=== PATIENT | female | born 1960 | race Caucasian/White ===

== ENCOUNTER 2019-06-10 07:55 | Inpatient (IN) | payer MEDICARE, MEDICAID ==
[2019-06-10] VITALS (13 sets, daily range): BP systolic 101–134; BP diastolic 51–75
[~2019-06-10] VITALS: Ht 162.6 cm; Wt 79.8 kg
[2019-06-10] MEDS ORDERED: TRANEXAMIC ACID 3,000 MG in SODIUM CHLORIDE IRRIG SOLUTION 70 ML IR ONE (08:30)
--- NOTE | 2019-06-10 08:30 | NUR ---
MS RN NOTES PATIENT ARRIVE AT UNIT AMBULATORY AT 0820. A/O X 4, NO ACUTE DISTRESS. NO C/O PAIN. PATIENT CALM AND RELAXED. FOR DAY SURGERY WITH DR GUZMAN FOR RIGHT ASHOK. PATIENT VERBALIZED SHE HAS BEEN NPO SINCE 06/09/19 AT 2000. LAST BM 06/09/19. IV LINE ESTABLISHED AT LEFT HAND g20, SECURED WITH TEGADERM. OR STAFF AWARE OF PATIENT ARRIVAL. PATIENT ORIENTED TO UNIT, STAFF, PLAN OF CARE AND VERBALIZED UNDERSTANDING. MRSA SWAB DONE. PATIENT INVENTORY DONE. WILL CONTINUE TO MONITOR. BED LOCKED AND IN LOW POSITION. BILATERAL UPPER SIDE RAILS UP AND LOCKED. CALL LIGHT WITHIN EASY REACH
--- NOTE | 2019-06-10 10:12 | NUR ---
WOUND CARE CONSULT: PT PRESENTS WITH RT SHOULDER SCAR. PT DENIED NEED FOR FURTHER SKIN ASSESSMENT PT IS CONTINENT AND AMBULATORY WITH CURRENT JOSE A SCORE OF 21. WILL SEE PRN.
--- NOTE | 2019-06-10 10:35 | NUR ---
MS RN NOTES PATIENT LEFT UNIT VIA HOSPITAL BED FOR SURGERY. LEFT IN STABLE CONDITION. A/O X4. BELONGINGS LEFT INSIDE ROOM.
[2019-06-10] MEDS ORDERED: KETOROLAC TROMETHAMINE INJ 30 MG/ML VIAL ONE (12:31)
--- NOTE | 2019-06-10 13:15 | NUR ---
MS RN NOTES PATIENT ARRIVED IN UNIT WITH 2 MICROBIOLOGY ANALYST VIA HOSPITAL BED FROM SURGERY, REPORT RECEIVED FROM MELANI BOLES. A/O X 4. ON RA. WITH IVF ON LEFT HAND INFUSING WELL. PROVIDED WITH INCENTIVE SPIROMETRY, DRESSING ON RIGHT HIP INTACT. NO ACUTE DISTRESS NOTED AT THIS TIME. PATIENT DENIES PAIN OR DISCOMFORT AT THIS TIME. PATIENT WITH NEW ORDERS FROM DR. GUZMAN, NOTED AND CARRIED OUT. PATIENT MADE AWARE AND VERBALIZED UNDERSTANDING. WILL CONTINUE TO MONITOR.
--- NOTE | 2019-06-10 13:20 | NUR ---
MS RN NOTES PATIENT SEEN AND EXAMINED BY DR. HUNTER WITH ORDERS NOTED AND CARRIED OUT.
[2019-06-10] MEDS ORDERED: MAG HYDROX/AL HYDROX/SIMETH 30 ML UDC PO PRN (13:30)
[2019-06-10] MEDS ORDERED: CLONIDINE HCL 0.1 MG TABLET PO PRN (13:30)
[2019-06-10] MEDS ORDERED: MENTHOL/CETYLPYRD (CEPACOL) 1 LOZ LOZENGE PO PRN (13:30)
[2019-06-10] MEDS ORDERED: ONDANSETRON HCL/PF 4 MG/2 ML VIAL IV PRN (13:30)
[2019-06-10] MEDS ORDERED: DOCUSATE SODIUM 250 MG CAPSULE PO PRN (14:00)
[2019-06-10] MEDS ORDERED: ACETAMINOPHEN 325 MG TABLET PO PRN (14:00)
[2019-06-10] MEDS ORDERED: TRAMADOL HCL 50 MG TABLET PO PRN (14:00)
[2019-06-10] MEDS ORDERED: oxyCODONE IR immediate release 5 MG PO ONE (14:12)
[2019-06-10] MEDS: NICOTINE PATCH (21MG) 21 MG PATCH.TD24 TD SCH (14:29)
--- NOTE | 2019-06-10 14:49 | NUR ---
MS RN NOTES PLACED CALL TO BOBO LARA. VERIFIED WEIGHT BEARING STATUS. PER AKOSUA ERYES, PATIENT OK TO BE WBAT. NOTED AND CARRIED OUT. PATIENT MADE AWARE AND VERBALIZED UNDERSTANDING. PHYSICAL THERAPY MADE AWARE. WILL CONTINUE TO MONITOR
[2019-06-10] MEDS ORDERED: BUSP30TA2 PO (15:54)
[2019-06-10] MEDS ORDERED: DIPH25TA62 PO (15:54)
[2019-06-10] MEDS ORDERED: SUMA100T16 PO (15:54)
[2019-06-10] MEDS ORDERED: OMEP20TA5 PO (15:54)
[2019-06-10] MEDS ORDERED: ACET-73 PO (15:54)
[2019-06-10] MEDS ORDERED: ALBU2.5V38 IH (15:54)
[2019-06-10] MEDS ORDERED: IPRA4AER IH (15:54)
[2019-06-10] MEDS ORDERED: METO-357 PO (15:54)
[2019-06-10] MEDS ORDERED: FLUT1BLS12 IH (15:54)
[2019-06-10] MEDS ORDERED: RIVA10TA PO (15:54)
[2019-06-10] MEDS ORDERED: MONT10TA22 PO (15:54)
[2019-06-10] MEDS ORDERED: ATOR80TA PO (15:54)
[2019-06-10] MEDS ORDERED: TOPI50TA PO (15:54)
[2019-06-10] MEDS ORDERED: DILT180C66 PO (15:54)
[2019-06-10] MEDS ORDERED: GABA-534 PO (15:54)
--- NOTE | 2019-06-10 16:32 | NUR ---
MS RN NOTES HOME MEDS ENTERED BY MED RECON NURSE. JUVENAL GARCIA DNP MADE AWARE. WILL CONTINUE TO MONITOR
[2019-06-10] MEDS: IV LR 1000 ML 1,000 ML IV PRN (17:39)
[2019-06-10] MEDS: DOCUSATE SODIUM 100 MG CAPSULE PO SCH (17:41)
--- NOTE | 2019-06-10 19:00 | NUR ---
MS RN NOTES Received patient A/O x4, awake on bed. On RA, no SOB/respiratory distress noted. With clean, dry and intact dressing on R hip, S/P ASHOK day 0. With abductor pillow between legs, with BLE in full extension. With complaints of pain 8/10, aggravated with movement. Kept on bed clean, dry and comfortable. Offered pain meds but patient wanted to take it later. Discussed with patient the POC for the night. On fall precautions, call light within easy reach. Will continue to monitor accordingly.
[2019-06-10] MEDS ORDERED: ALBUTEROL FS 2.5 MG/3 ML VIAL.NEB NEB PRN (19:30)
[2019-06-10] MEDS ORDERED: SUMATRIPTAN SUCCINATE 100 MG TABLET PO PRN (19:30)
--- NOTE | 2019-06-10 19:41 | NUR ---
MS RN CLOSING NOTES PATIENT IN ROOM RESTING COMFORTABLY WITH MODERATE HIGH BACKREST. A/O X 4. ON RA, TOLERATING WELL. ON IVF ON LEFT HAND #20 WITH LR @100ML/HR. INFUSING WELL. NO INFILTRATION NOTED. S/P RIGHT ASHOK. DRESSING INTACT, NO ACTIVE BLEEDING NOTE. BILATERAL SCD IN PLACE. PATIENT KEPT CLEAN, DRY AND COMFORTABLE. BED IN LOWEST POSITION, CALL LIGHT WITHIN REACH. BED ALARM ON. ENDORSED TO TURRET LATHE MACHINIST NURSE FOR CELIA.
[2019-06-10] MEDS: oxyCODONE IR immediate release 5 MG PO PRN ×2 (19:52→22:13)
[2019-06-10] MEDS: IPRATROPIUM NEB FS 0.5 MG/2.5 ML AMPUL.NEB NEB SCH ×2 (20:00→23:07)
[2019-06-10] MEDS ORDERED: diphenhydrAMINE HCL 25 MG CAPSULE PO PRN (20:00)
[2019-06-10] MEDS: FAMOTIDINE (20 MG) 20 MG TABLET PO SCH (20:26)
[2019-06-10] MEDS: ANCEF 1 GM/50 ML D5W IV SCH ×2 (20:26)
[2019-06-10 20:46] LABS: CALCIUM, SERUM 8.5 mg/dL (8.5-10.1); CREATININE 1.4 mg/dL (0.6-1.3); POTASSIUM 3.9 mmol/L (3.5-5.1)
[2019-06-10] MEDS: METOPROLOL SUCCINATE 50 MG TAB.SR.24H PO SCH (20:57)
--- NOTE | 2019-06-10 20:58 | NUR ---
MS RN NOTES BP 104/75mmHg. Help Metoprolol at this time. Taught patient the s/sx of hypertension, patient verbalized understanding. Will continue to monitor the patient accordingly.
[2019-06-10] MEDS ORDERED: ZOLPIDEM TARTRATE 5 MG TABLET PO PRN (22:00)
[2019-06-10] MEDS ORDERED: SENNOSIDES 8.6 MG TABLET PO PRN (22:00)
[2019-06-11] MEDS: oxyCODONE IR immediate release 5 MG PO PRN ×5 (01:45→22:00)
[2019-06-11] MEDS: IV LR 1000 ML 1,000 ML IV PRN (03:59)
[2019-06-11] MEDS: ANCEF 1 GM/50 ML D5W IV SCH ×2 (04:00)
--- NOTE | 2019-06-11 04:45 | NUR ---
MS RN NOTES Received a call from Dr. Stevens. Status update provided. Received orders, noted and carried out. Decreased IVF LR to 50ml/hr as ordered. Will continue to monitor accordingly.
[2019-06-11] MEDS: diphenhydrAMINE HCL 25 MG CAPSULE PO PRN ×2 (05:32→23:37)
[2019-06-11 06:24] LABS: BASOPHILS % (AUTO) 0.1 % (0.0-2.0); HEMATOCRIT 42 % (33-45); HEMOGLOBIN 13.4 g/dL (11.5-14.8); LYMPHOCYTES # (AUTO) 2.5 /CMM (0.8-4.8); LYMPHOCYTES % (AUTO) 13.8 % (20.0-44.0); MEAN CORPUSCULAR HGB CONC 32 g/dl (31.0-36.0); MEAN CORPUSCULAR VOLUME 90 fL (82-100); MONOCYTES # (AUTO) 1.1 /CMM (0.1-1.30); NEUTROPHILS # (AUTO) 14.6 /CMM (1.8-8.9); NEUTROPHILS % (AUTO) 80.1 % (43.0-81.0); PLATELET COUNT (AUTO) 344 /CMM (150-450); RED BLOOD CELL COUNT(AUTO) 4.64 MIL/uL (4.0-5.2); WHITE BLOOD COUNT (AUTO) 18.3 K/uL (4.3-11.0)
[2019-06-11 06:54] LABS: ALBUMIN 3.7 g/dL (3.4-5.0); BILIRUBIN,TOTAL 0.3 mg/dL (0.2-1.0); CREATININE 1.3 mg/dL (0.6-1.3); MAGNESIUM 2.1 mg/dL (1.8-2.4); PHOSPHORUS 4.6 mg/dL (2.5-4.9); POTASSIUM 4.1 mmol/L (3.5-5.1); TOTAL PROTEIN, SERUM 7.3 g/dL (6.4-8.2)
--- NOTE | 2019-06-11 07:00 | NUR ---
MS RN CLOSING NOTES Patient awake on bed on Hassan's position. Abduction pillow kept on place while patient is on bed. Patient noted able to use bedside commode with minimal assistance. Medicated for pain, noted effective. R hip dressing intact, clean and dry. All nursing needs attended. On fall precautions, call light within easy reach. Endorsed to the next shift.
--- NOTE | 2019-06-11 07:00 | NUR ---
RN OPENING NOTES RECEIVED PATIENT IN BED RESTING. A/OX4, ABLE TO MAKE NEEDS KNOWN. NOT IN ANY FORM OF DISTRESS, NO SOB. DENIED PAIN OR DISCOMFORT AT THIS TIME. IV ACCESS INTACT AND PATENT. ABDUCTOR PILLOW IN PLACE. ON SCD PUMPS. COMMODE AT BEDSIDE. KEPT PATIENT SAFE AND COMFORTABLE. BED IN LOW/LOCKED POSITION, SIDERAILS UPX2, CALL LIGHT IN REACH. WILL CONTINUE TO MONIOTR ACCORDINGLY.
[2019-06-11 07:14] LABS: THYROID STIMULATING HORMONE 1.018 uIU/mL (0.358-3.74)
[2019-06-11] MEDS: IPRATROPIUM NEB FS 0.5 MG/2.5 ML AMPUL.NEB NEB SCH ×3 (07:35→20:33)
[2019-06-11 08:00] VITALS: BP 124/76
[2019-06-11] MEDS: FLUTICASONE/VILANTEROL 1 EACH BLST.W.DEV IH SCH (08:59)
[2019-06-11] MEDS: TOPIRAMATE 25 MG TABLET PO SCH ×2 (08:59→17:17)
[2019-06-11] MEDS: FAMOTIDINE (20 MG) 20 MG TABLET PO SCH ×2 (09:00→20:57)
[2019-06-11] MEDS: DILTIAZEM HCL CD 180 MG PO SCH (09:00)
[2019-06-11] MEDS ORDERED: GABAPENTIN 300 MG CAPSULE PO SCH (09:00)
[2019-06-11] MEDS: busPIRone 5 MG TABLET PO SCH ×2 (09:01→17:18)
[2019-06-11] MEDS: GABAPENTIN 300 MG CAPSULE PO SCH ×3 (09:02→17:16)
[2019-06-11] MEDS: MONTELUKAST SODIUM (10MG) 10 MG TABLET PO SCH (09:02)
[2019-06-11] MEDS: DOCUSATE SODIUM 100 MG CAPSULE PO SCH ×2 (09:02→17:16)
[2019-06-11] MEDS: NICOTINE PATCH (21MG) 21 MG PATCH.TD24 TD SCH (09:03)
[2019-06-11] MEDS: ATORVASTATIN 40 MG TABLET PO SCH (09:03)
[2019-06-11] MEDS ORDERED: ALBUTEROL INH PRN (11:00)
[2019-06-11] MEDS ORDERED: IPRATROPIUM INH PRN (11:00)
--- NOTE | 2019-06-11 11:41 | NUR ---
RN NOTES HOME MEDS INHALER AT BEDSIDE.
[2019-06-11 15:30] VITALS: BP 100/65
--- NOTE | 2019-06-11 16:00 | NUR ---
RN NOTES PATIENT REPORTED THAT SHE FELT A "POP" ON HER RIGHT HIP AND FELT WEIRD. STAT XRAY ORDERED. Addendum: 06/11/19 at 1805 by WALKER JACKSON EVELYN REID
[2019-06-11] MEDS: RIVAROXABAN 10 MG TABLET PO SCH (17:22)
--- NOTE | 2019-06-11 18:00 | NUR ---
RN NOTES IV ACCESS INFILTRATED. STOP INFUSION, REMOVED IV ACCESS, NO BLEEDING. ELEVATED EXTREMITY. WILL MONIOTR ACCORDINGLY
--- NOTE | 2019-06-11 18:10 | NUR ---
RN NOTES REFUSED COLD COMPRESS TO THE INFILTRATED SITE. EXPLAINED RISK AND BENEFIT BUT STILL REFUSED. PER PATIENT, "NAH, ITS OK, IT'S NOT PAINFUL, IT'S GETTING BETTER AND SWELLING IS ALMOST GONE.". TOLD PATIENT TO JUST CONTINUE TO ELEVATE THE LEFT ARM. WILL MONITOR ACCORDINGLY
--- NOTE | 2019-06-11 18:43 | NUR ---
RN CLOSING NOTES PATIENT IN STABLE CONDITION. ALL NEEDS ATTENDED AND PROVIDED. ALL DUE MEDICATIONS GIVEN ORDERED. ASSISTED WITH ADLS. KEPT PATIENT SAFE AND COMFORTABLE. ABDUCTOR PILLOW IN PLACE. SCD PUMPS ON. COMMODE AT BEDSIDE. BED IN LOW/LOCKED POSITION, SIDERAILS UPX2, CALL LIGHT IN REACH. WILL ENDORSED TO NIGHT RN FOR CELIA.
--- NOTE | 2019-06-11 19:00 | NUR ---
RN medsurg notes Pt is alert and oriented x4. Pt is laying in bed comfortably watching TV. Respiration is normal. NO SOB. NO nausea or vomiting. No S/S of distress noted. Pt doesn't have IV sites at this time because of infiltration. Will insert IV later. Pt verbalize understanding. Safety precautions is maintained. Instructed to call for assistance. Bed at low position, brakes on, side rails upX2 and call light is within reach. Will continue to monitor and assist all needs.
[2019-06-11 20:00] VITALS: BP 123/57
--- NOTE | 2019-06-11 20:45 | NUR ---
Patient is POD#1 s/p Right total hip arthroplasty.She lives at home with her daughter Katie in a two story home with her bedroom on the first floor. Prior to admission, she was ambulating with a four wheel walker and independent with adl's. She own a cane and a four wheel walker. Patient is requesting a commode or shower chair when discharge. Offered ARU for rehab but patient declined. She prefer to go home and requesting outpatient therapy in [place]. Daughter Katie will provide ride when discharge. Addendum: 06/11/19 at 2044 by SRINI TOBIAS RN Amended: Links added.
[2019-06-11] MEDS: METOPROLOL SUCCINATE 50 MG TAB.SR.24H PO SCH (22:00)
--- NOTE | 2019-06-11 22:00 | NUR ---
RN medsurg notes Administered Oxy Ir 10 mg as ordered for Pain in Left and right hip 7/10 on pain scale per Pt requested. Instructed to call. Will continue to monitor.
[2019-06-11 22:20] VITALS: BP 114/63
--- NOTE | 2019-06-11 22:22 | NUR ---
RN medsurg notes Held Metoprolol 50 mg/PO/HS. Pt's BP 114/63, Pulse 81, Temp 97.8, Respiration 18, O2 sat 96%. Educated Pt's about S/S of hypertension. Pt's verbalized understanding. Will continue to monitor.
--- NOTE | 2019-06-11 22:30 | NUR ---
RN medsurg notes Inserted new IV sites at Left AC #22 gauge. IV sites is patent, intact and flush without resistance. Pt tolerated activity well.
--- NOTE | 2019-06-11 23:00 | NUR ---
RAMANA corey notes Pt refused Incentive Spirometer. Informed and educated Pt about Incentive spirometer activity. Risks and benefits made aware. Pt verbalized understanding and still refusing. Will continue to monitor.
--- NOTE | 2019-06-11 23:10 | NUR ---
RN madhav notes Dr. Stevens at the bedside talking about POC. Dr. Stevens asked about Pt's concerned. Pt asked medication that will help Pt to sleep. Pt states " Ambien doesn't work for me." Pt's also complaining of itchyness. suggested to give Benadryl to Pt. Ordered carried out.
--- NOTE | 2019-06-11 23:37 | NUR ---
RN medsurg notes Administered Benadryl 25 mg/PO as ordered for itchyness per Pt's requested. Instructed to call. Will continue to monitor.
[2019-06-12] VITALS (7 sets, daily range): BP systolic 104–131; BP diastolic 55–68
--- NOTE | 2019-06-12 | NUR ---
RN medsurg notes Pt is sleeping in bed comfortably. Awaken easily. No SOB. NO S/S of distress noted. Call light is within reach. Will continue to monitor.
[2019-06-12] MEDS: IPRATROPIUM NEB FS 0.5 MG/2.5 ML AMPUL.NEB NEB SCH ×4 (01:30→19:30)
--- NOTE | 2019-06-12 01:55 | NUR ---
RAMANA corey notes Pt refused breathing treatment from RT. Pt states "I don't need breathing treatment". Risk and benefits made aware. Pt verbalized understanding and still refusing. Will continue to monitor.
[2019-06-12] MEDS: oxyCODONE IR immediate release 5 MG PO PRN ×4 (02:09→17:23)
--- NOTE | 2019-06-12 02:16 | NUR ---
RN medsurrivas notes Administered Oxy Ir 15 mg as ordered for Pain in Right hip 8/10 on pain scale per Pt requested. Instructed to call. Will continue to monitor.
--- NOTE | 2019-06-12 02:46 | NUR ---
RN medsurg notes Pt is sleeping in bed comfortably. Awaken easily. No SOB. No S/S of distress noted. Pt's pain level is 3/10 on pain scale. BP 104/62, PULSE 70, RESP 18, 02 SAT IS 95%, TEMP 97.8. Instructed to call. Call light is within reach. Will continue to monitor.
--- NOTE | 2019-06-12 06:28 | NUR ---
RN medsurg notes Administered Senokot Tab 8.6mg (2 tabs)/PO as ordered for constipation per Pt requested. Will continue to monitor.
--- NOTE | 2019-06-12 06:56 | NUR ---
RN medsurg closing notes Pt is alert and oriented X4. Pt is resting in bed comfortably. No SOB. No nausea or vomiting. No S/S of distress noted. IV sites is intact, patent and infusing well LR 50 ml/hr. Routine meds including PRN meds were given as ordered. All needs met. Safety precautions is maintained. Will endorse to morning nurse for CELIA.
--- NOTE | 2019-06-12 06:57 | NUR ---
RN closing notes continue R hip dressing is intact, clean and dry. Abduction pillow kept in place while Pt in bed. Instructed Pt to call for assistance. Will endorse to morning nurse for CELIA.
[2019-06-12 07:07] LABS: CALCIUM, SERUM 8.7 mg/dL (8.5-10.1); CREATININE 0.9 mg/dL (0.6-1.3); POTASSIUM 4.1 mmol/L (3.5-5.1)
[2019-06-12 07:08] LABS: BASOPHILS % (AUTO) 0.2 % (0.0-2.0); EOSINOPHILS % (AUTO) 0.4 % (0.0-6.0); HEMATOCRIT 39 % (33-45); HEMOGLOBIN 12.5 g/dL (11.5-14.8); LYMPHOCYTES % (AUTO) 26.4 % (20.0-44.0); MEAN CORPUSCULAR HGB CONC 33 g/dl (31.0-36.0); MEAN CORPUSCULAR VOLUME 88 fL (82-100); MONOCYTES # (AUTO) 1.1 /CMM (0.1-1.30); MONOCYTES % (AUTO) 7.6 % (2.0-12.0); NEUTROPHILS # (AUTO) 9.8 /CMM (1.8-8.9); NEUTROPHILS % (AUTO) 65.4 % (43.0-81.0); PLATELET COUNT (AUTO) 323 /CMM (150-450); RED BLOOD CELL COUNT(AUTO) 4.36 MIL/uL (4.0-5.2); WHITE BLOOD COUNT (AUTO) 15.1 K/uL (4.3-11.0)
--- NOTE | 2019-06-12 08:00 | NUR ---
Pt in bed awake, alert, oriented x4, verbally responsive, s/o total hip arthroplasty surgery, comfortable no distress.
[2019-06-12] MEDS: TOPIRAMATE 25 MG TABLET PO SCH ×2 (08:41→16:35)
[2019-06-12] MEDS: ATORVASTATIN 40 MG TABLET PO SCH (08:41)
[2019-06-12] MEDS: NICOTINE PATCH (21MG) 21 MG PATCH.TD24 TD SCH (08:43)
[2019-06-12] MEDS: MONTELUKAST SODIUM (10MG) 10 MG TABLET PO SCH (08:43)
[2019-06-12] MEDS: GABAPENTIN 300 MG CAPSULE PO SCH ×3 (08:43→16:34)
[2019-06-12] MEDS: FAMOTIDINE (20 MG) 20 MG TABLET PO SCH ×2 (08:43→21:08)
[2019-06-12] MEDS: DOCUSATE SODIUM 100 MG CAPSULE PO SCH ×2 (08:43→16:34)
[2019-06-12] MEDS: DILTIAZEM HCL CD 180 MG PO SCH (08:46)
[2019-06-12] MEDS: FLUTICASONE/VILANTEROL 1 EACH BLST.W.DEV IH SCH (08:51)
[2019-06-12] MEDS: busPIRone 5 MG TABLET PO SCH ×2 (12:50→17:23)
--- NOTE | 2019-06-12 13:36 | NUR ---
Pt was seen by DR Vanessa BROUSSARD, and pt c/o incision site feeling nob and also tingling, dressing to incision was change by PA, no s/s of complication, chuy in place, also pt was seen by hospitalism and was informed to him that pt is taking enough fluids and ok to dc ivf .
[2019-06-12] MEDS: RIVAROXABAN 10 MG TABLET PO SCH (16:35)
--- NOTE | 2019-06-12 16:58 | NUR ---
Pt in bed awake,alert, oriented, s/p total hip arthroplasty dressing at site C/D, and changed today by Dr Mendez WOOL GROWER, still c/o pain, assist to change position, and comfortable now in bed, no distress.
--- NOTE | 2019-06-12 19:00 | NUR ---
RAMANA schulersurrivas opening notes Pt is alert and oriented X4. Pt is sitting in bed comfortably. Pt will be D/C today at 2100. Respiration is normal. No SOB. No nausea or vomiting. Dressing on Right hip incision is clean, intact and dry. Pt denies any pain or discomfort at this time. IV sites at LAC # 22 is intact, patent and SL. Safety precautions is maintained. Instructed to call. Bed at low position, brakes on, side rails upX2 and call light is within reach. Will continue to monitor.
--- NOTE | 2019-06-12 20:15 | NUR ---
RAMANA medsurrivas notes Pt refused breathing treatment by RT.
--- NOTE | 2019-06-12 21:30 | NUR ---
RN medsurg notes Pt refused to have picture of incision on R hip taken. Pt only wanted picture of the dressing. Dressing is clean, intact and dry.
[2019-06-12] MEDS: METOPROLOL SUCCINATE 50 MG TAB.SR.24H PO SCH (21:39)
--- NOTE | 2019-06-12 21:40 | NUR ---
RN medsurg notes Held Metoprolol 50 mg/PO/HS. Pt's BP 106/61, Pulse 96, Temp 98.5, Respiration 20, O2 sat 95%. Educated Pt's about S/S of hypertension. Pt's verbalized understanding. Will continue to monitor.
--- NOTE | 2019-06-12 21:50 | NUR ---
RN medsurg D/C notes Pt is alert and oriented X4. Respiration is normal. No SOB. No nausea or vomiting. D/C instruction sheet given and signed by Pt. All belonging lists checked and given, signed by Pt. All home medications given to Pt. Pictures taken and placed in Pt's chart. VS is stable and afebrile. Pt has been ambulating in the room without chest pain or SOB. Routine meds given. Educated and inform Pt to follow with MD and take medications as prescribed. Pt verbalized understanding medications times, dosage and adverse effect and how to F/U with MD. Educated Pt about wound care, dressing change and how to prevent infection. Pt verbalized understanding. [employer] ([phone]) high lift driver's name is Robin Vera ( [address]) picked up Pt and will transport Pt to [facility] home. Pt's daughter, Katie is at home. Escorted via wheelchair to hospital lobby. All belongings sent with patient.
== END 2019-06-12 21:50 | disposition home health service (06) | DRG 469 ==
LOC: DS 07:55 → MED 07:58
PROVIDERS: ADMIT Hospitalist; ATTEND Hospitalist
PROC: 0SR90JZ Replacement of Right Hip Joint with Synthetic Substitute, Open Approach (ICD-10-PCS; principal; 2019-06-10)
DX: M16.11 Unilateral primary osteoarthritis, right hip (principal); N17.0 Acute kidney failure with tubular necrosis; R00.0 Tachycardia, unspecified; I25.2 Old myocardial infarction; E11.9 Type 2 diabetes mellitus without complications; E66.9 Obesity, unspecified; E78.5 Hyperlipidemia, unspecified; F43.10 Post-traumatic stress disorder, unspecified; J44.9 Chronic obstructive pulmonary disease, unspecified; I10 Essential (primary) hypertension; D72.829 Elevated white blood cell count, unspecified; M06.9 Rheumatoid arthritis, unspecified; F32.9 Major depressive disorder, single episode, unspecified; K21.9 Gastro-esophageal reflux disease without esophagitis; F17.210 Nicotine dependence, cigarettes, uncomplicated; Z71.6 Tobacco abuse counseling; R91.8 Other nonspecific abnormal finding of lung field; Z96.651 Presence of right artificial knee joint; Z88.9 Allergy status to unspecified drugs, medicaments and biological substances; Z68.30 Body mass index [BMI] 30.0-30.9, adult
CPT/HCPCS: 36415; 72170-TC; 80048-TC; 80053-TC; 80061-TC; 80305; 83735-TC; 84100-TC; 84443-TC; 85025-TC; 85730-TC; 87081-TC; 88305-TC; 88311-TC; 97110-TC; 97116-TC; 97530-TC; A4217; A6209; A6253; A6402; G0378; J0690; J1100; J1885; J2710; J3490; J7030; J7060; J7120; Q0163